=== PATIENT | female | born 1965 | race Caucasian/White ===

== ENCOUNTER 2017-06-05 14:21 | Emergency (ER) | payer BC ==
[2017-06-05 14:29] VITALS: BMI 32.1
[2017-06-05 14:32] VITALS: O2SAT 99
[2017-06-05 15:04] LABS: HCG,QUALITATIVE URINE NEGATIVE (NEGATIVE)
[2017-06-05 15:12] LABS: SQUAMOUS EPITHIAL 4 /hpf (0-5); URINE BACTERIA OCC (<OCC); URINE BILIRUBIN NEGATIVE (NEGATIVE); URINE BLOOD NEGATIVE (NEGATIVE); URINE CLARITY Hazy (Clear); URINE COLOR Amber (YELLOW); URINE GLUCOSE (UA) NORMAL (Normal); URINE LEUKOCYTE ESTERASE NEG Leu/uL (Negative); URINE PROTEIN NEGATIVE (NEGATIVE)
--- NOTE | 2017-06-05 15:36 | C.PDOC ---
History Of Present Illness 51 y/o female with history of a hysterectomy presents to ED with complaints of right sided low back pain radiating to RLQ since yesterday morning. Patient denies fever, chills, nausea, vomiting, vaginal bleeding, dysuria, hematuria or any other complaints at this time. Time Seen by Provider: 06/05/17 14:35 Chief Complaint (Nursing): Abdominal Pain History Per: Patient History/Exam Limitations: no limitations Onset/Duration Of Symptoms: Days Current Symptoms Are (Timing): Still Present Past Medical History Reviewed: Historical Data, Nursing Documentation, Vital Signs Vital Signs: Last Vital Signs Temp 97.8 F 06/05/17 17:43 Pulse 62 06/05/17 17:43 Resp 18 06/05/17 17:43 BP 117/79 06/05/17 17:43 Pulse Ox 99 06/05/17 17:43 - Medical History PMH: No Chronic Diseases Surgical History: No Surg Hx Family History: States: No Known Family Hx - Social History Hx Tobacco Use: No Hx Alcohol Use: No Hx Substance Use: No - Immunization History Hx Tetanus Toxoid Vaccination: No Hx Influenza Vaccination: No Hx Pneumococcal Vaccination: No Review Of Systems Constitutional: Negative for: Fever, Chills Gastrointestinal: Positive for: Abdominal Pain. Negative for: Nausea, Vomiting Genitourinary: Negative for: Dysuria, Hematuria Musculoskeletal: Positive for: Back Pain Skin: Negative for: Rash Physical Exam - Physical Exam Appears: Non-toxic, No Acute Distress Skin: Warm, Dry, No Rash Head: Atraumatic, Normacephalic Oral Mucosa: Moist Neck: Normal ROM, Supple Cardiovascular: Rhythm Regular Respiratory: Normal Breath Sounds, No Rales, No Rhonchi, No Wheezing Gastrointestinal/Abdominal: Soft, Tenderness (Mild RLQ), No Guarding, No Rebound Back: No CVA Tenderness Extremity: Normal ROM, Capillary Refill (<2 seconds) Neurological/Psych: Oriented x3, Normal Speech, Normal Cognition ED Course And Treatment - Laboratory Results Result Diagrams: 06/05/17 15:43 06/05/17 15:43 O2 Sat by Pulse Oximetry: 99 (RA) Pulse Ox Interpretation: Normal Medical Decision Making Medical Decision Making: Plan: CT Abdomen/pelvis and Pelvis US ordered. Disposition - Disposition Referrals: Cassidy Wong MD [Staff Provider] - Disposition: HOME/ ROUTINE Disposition Time: 18:18 Condition: GOOD Additional Instructions: follow up with the medical doctor/clinic within 1-2 days. Return if worsened. Prescriptions: Naproxen [Naprosyn] 500 mg PO BID #20 tab Instructions: Ovarian Cysts Forms: [employer] (Czech) - Clinical Impression Clinical Impression: Ovarian cyst - PA / USABILITY ENGINEER / Resident Statement MD/DO has reviewed & agrees with the documentation as recorded. - Scribe Statement The provider has reviewed the documentation as recorded by the Rodrigoiboneida Alfonso All medical record entries made by the Rodrigoiboneida were at my direction and personally dictated by me. I have reviewed the chart and agree that the record accurately reflects my personal performance of the history, physical exam, medical decision making, and the department course for this patient. I have also personally directed, reviewed, and agree with the discharge instructions and disposition.
[2017-06-05 15:54] LABS: BASO # 0.1 K/uL (0.0-0.2); BASO % 0.9 % (0.0-2.0); EOS # 0.1 K/uL (0.0-0.7); HEMOGLOBIN 13.5 g/dL (11.0-16.0); LYMPH # 2.1 K/uL (1.0-4.3); LYMPH % 32.2 % (20.0-40.0); MEAN CELL VOLUME 89.4 fL (81.0-99.0); MEAN CORPUSCULAR HEMOGLOBIN 29.8 pg (27.0-31.0); MEAN CORPUSCULAR HGB CONC 33.4 g/dL (33.0-37.0); MEAN PLATELET VOLUME 7.8 fL (7.2-11.7); MONO # 0.4 K/uL (0.0-0.8); MONO % 5.6 % (0.0-10.0); NEUT # 3.9 K/uL (1.8-7.0); NEUT % 59.3 % (50.0-75.0); RBC 4.51 Mil/uL (3.80-5.20); RED CELL DISTRIBUTION WIDTH 12.9 % (11.5-14.5); WHITE BLOOD COUNT 6.5 K/uL (4.8-10.8)
--- NOTE | 2017-06-05 16:09 | CT ---
PROCEDURE: CT Abdomen and Pelvis without intravenous contrast HISTORY: R flank pain, radiating to R groin r/o stone COMPARISON: CT scan of the abdomen and pelvis dated 05/27/2016. TECHNIQUE: Contiguous images were obtained from the domes of the diaphragms to the upper thighs without the administration of intravenous contrast. Oral contrast was not administered. Radiation dose: Total exam DLP = 914.1 mGy-cm. This CT exam was performed using one or more of the following dose reduction techniques: Automated exposure control, adjustment of the mA and/or kV according to patient size, and/or use of iterative reconstruction technique. FINDINGS: LOWER THORAX: Unremarkable. LIVER: Unremarkable. No gross lesion or ductal dilatation. GALLBLADDER AND BILE DUCTS: Prior cholecystectomy with surgical clips in place. PANCREAS: Unremarkable. No gross lesion or ductal dilatation. SPLEEN: Unremarkable. ADRENALS: Unremarkable. No mass. KIDNEYS AND URETERS: Unremarkable. No hydronephrosis. No solid mass. VASCULATURE: Unremarkable. No aortic aneurysm. BOWEL: Prior gastric surgery. Prior small bowel surgery in the left lower quadrant. No obstruction. No gross mural thickening. APPENDIX: Unremarkable. Normal appendix. PERITONEUM: Small fat containing umbilical hernia. Small bilateral fat containing inguinal hernias. No free fluid. No free air. LYMPH NODES: Unremarkable. No enlarged lymph nodes. BLADDER: Unremarkable. REPRODUCTIVE: Unremarkable. BONES: No acute fracture. OTHER FINDINGS: None. IMPRESSION: No urolithiasis or evidence of recently passed genitourinary calculus. No acute abdominal pelvic pathology. Stable incidental findings as above.
[2017-06-05 16:23] LABS: ALB/GLOB RATIO 1.1 (1.0-2.1); ALBUMIN 3.8 g/dL (3.5-5.0); ALT/SGPT 26 U/L (9-52); AST/SGOT 32 U/L (14-36); BLOOD UREA NITROGEN 16 mg/dL (7-17); CALCIUM 9.2 mg/dl (8.6-10.4); GFR AFRICAN-AMERICAN > 60; GFR NON-AFRICAN AMERICAN > 60; LIPASE 161 U/L (23-300)
--- NOTE | 2017-06-05 17:26 | US ---
HISTORY: R pelvic pain, hx of hystectomy, has ovarian still COMPARISON: None available. TECHNIQUE: Grayscale, color Doppler and spectral evaluation of the pelvis performed transabdominally and transvaginally FINDINGS: UTERUS: Prior hysterectomy. RIGHT OVARY: Measures 2.7 x 2.8 x 2.7 cm. 1.9 x 1.6 x 1.7 cm cyst. Normal flow. LEFT OVARY: Not visualized. FREE FLUID: No significant free fluid noted. OTHER FINDINGS: None. IMPRESSION: Prior hysterectomy. 1.9 cm right ovarian cyst.
[2017-06-05 17:57] VITALS: BP 117/79; PULSE 62; RESP 18; TEMP 97.8
== END 2017-06-05 18:49 | disposition home or self-care (01) ==
LOC: C.ER 14:21
DX: N83.209 Unspecified ovarian cyst, unspecified side (principal)
CPT/HCPCS: 74176; 76830; 76856; 80053; 81001; 83690; 84703; 85025; 87086; 96374; 99285; J1885

== ENCOUNTER 2017-07-01 13:07 | Emergency (ER) | payer BC ==
[2017-07-01 13:08] VITALS: BMI 32.1
[2017-07-01 13:26] VITALS: BP 138/84; PULSE 79; RESP 20; TEMP 98.2; O2SAT 100
[2017-07-01 15:09] LABS: SQUAMOUS EPITHIAL 5 /hpf (0-5); URINE BACTERIA RARE (<OCC); URINE BILIRUBIN NEGATIVE (NEGATIVE); URINE CLARITY Hazy (Clear); URINE COLOR Yellow (YELLOW); URINE GLUCOSE (UA) 2+ mg/dL (Normal); URINE LEUKOCYTE ESTERASE NEG Leu/uL (Negative); URINE PROTEIN NEGATIVE (NEGATIVE); URINE UROBILINOGEN NORMAL mg/dL (0.2-1.0)
[2017-07-01 15:10] LABS: URINE BLOOD 1+ (NEGATIVE)
--- NOTE | 2017-07-01 15:21 | C.PDOC ---
History Of Present Illness 51 y/o female, with a PMHx of hysterectomy, gastric bypass, presents to the ED complaining right lower abdominal discomfort, chronic and crampy in nature. Seen here on 06/05 for same, and had a CT scan revealing a 1.9 cm right ovarian cyst and chronic constipation. Patient states she has followed up with RADIOLOGICAL TECHNICIAN and surgery is planned. RADIOLOGICAL TECHNICIAN ordered outpatient blood work and RBCs were present in urine so patient was referred for work-up to rule out kidney pathology. Patient then had CT A/P done outpatient and has urology follow up scheduled. She states the pain returned today, prompting her to come in for further evaluation. Otherwise patient reports having normal bowel movements. Diet is based on rice, bananas, chicken wings, and sandwiches. Patient denies any vomiting, diarrhea, fever, or chills. Time Seen by Provider: 07/01/17 13:55 Chief Complaint (Nursing): Back Pain History Per: Patient History/Exam Limitations: no limitations Onset/Duration Of Symptoms: Days Current Symptoms Are (Timing): Still Present Quality Of Discomfort: Cramping Past Medical History Reviewed: Historical Data, Nursing Documentation, Vital Signs Vital Signs: Last Vital Signs Temp 98.2 F 07/01/17 13:23 Pulse 79 07/01/17 13:23 Resp 20 07/01/17 13:23 BP 138/84 07/01/17 13:23 Pulse Ox 100 07/01/17 15:22 - Medical History PMH: No Chronic Diseases Surgical History: Hernia Repair Other Surgeries: Hysterectomy, gastric bypass 2010 Family History: States: Unknown Family Hx - Social History Hx Tobacco Use: No Hx Alcohol Use: No Hx Substance Use: No - Immunization History Hx Tetanus Toxoid Vaccination: No Hx Influenza Vaccination: No Hx Pneumococcal Vaccination: No Review Of Systems Except As Marked, All Systems Reviewed And Found Negative. Constitutional: Negative for: Fever, Chills Gastrointestinal: Positive for: Abdominal Pain. Negative for: Nausea, Vomiting , Diarrhea, Constipation Physical Exam - Physical Exam Appears: Non-toxic, No Acute Distress Skin: Normal Color, Warm, Dry Head: Atraumatic, Normacephalic Eye(s): bilateral: Normal Inspection, PERRL, EOMI Oral Mucosa: Moist Neck: Normal ROM, Supple Chest: Symmetrical Cardiovascular: Rhythm Regular, No Murmur Respiratory: Normal Breath Sounds, No Rales, No Rhonchi, No Wheezing Gastrointestinal/Abdominal: Soft, No Tenderness, No Guarding, No Rebound, Other (obese abdomen) Extremity: Normal ROM, No Tenderness (to sacral or hip regions), No Deformity Neurological/Psych: Oriented x3, Normal Speech ED Course And Treatment - Laboratory Results Lab Interpretation: Normal (+ microscopic hematuria) O2 Sat by Pulse Oximetry: 100 - Radiology CXR: Interpreted by Me CXR Interpretation: Yes: No Acute Disease - Other Rad abd x 2 X-Ray: Interpreted by Me (+FOS) Medical Decision Making Medical Decision Making: chronic crampy R abd discomfor more c/w chronic constipation (poor diet after GBP) than microscopic hematia vs <2cm ovarian cyst. diet and exercise reviewed and educated. Disposition Doctor Will See Patient In The: Office Counseled Patient/Family Regarding: Studies Performed, Diagnosis - Disposition Referrals: Cassidy Wong MD [Staff Provider] - Disposition: HOME/ ROUTINE Disposition Time: 15:22 Condition: GOOD Additional Instructions: trial a laxative now- drink a bottle of Mag Citrate now- and re-evluate your abdominal discomfort after using the bathroom 2-3 times. diet and exercise changes: 7 fresh fruits and vegetables daily (salad counts for 2) drink more water power-walk 45 min/day x 5 days/week No fried foods Avoid potatoes/rice/meats/cheeses/bananas- very constipating. follow-up with your PMD, our Clinic or a urologist as needed for your microscopic hematuria. Instructions: Constipation, Adult (DC) Forms: [employer] (Austrian) - Clinical Impression Clinical Impression: Colicky RLQ abdominal pain - Scribe Statement The provider has reviewed the documentation as recorded by the Scribe (Fiorella Martinez) Provider Attestation: All medical record entries made by the Scribe were at my direction and personally dictated by me. I have reviewed the chart and agree that the record accurately reflects my personal performance of the history, physical exam, medical decision making, and the department course for this patient. I have also personally directed, reviewed, and agree with the discharge instructions and disposition.
--- NOTE | 2017-07-02 08:36 | RAD ---
PROCEDURE: Radiographs of the chest and abdomen (obstructive series) HISTORY: R abd discomfort COMPARISON: No prior. TECHNIQUE: AP radiograph of the chest, with upright and supine radiographs of the abdomen. FINDINGS: CHEST: Lungs: Clear. Cardiovascular: Normal size heart. No pulmonary vascular congestion. Pleura: No pleural fluid. No pneumothorax. Other findings: Thoracic dextroscoliosis. ABDOMEN AND PELVIS: Bowel: Unremarkable bowel gas pattern. No evidence of mechanical obstruction. Free air: None. Bones: Unremarkable. Other findings: Surgical clips in the upper abdomen. Surgical sutures in left lower quadrant of abdomen. IMPRESSION: No evidence bowel obstruction. No pulmonary infiltrate.
== END 2017-07-01 15:40 | disposition home or self-care (01) ==
LOC: C.ER 13:07
DX: R10.31 Right lower quadrant pain (principal)